=== PATIENT | male | born 1985 | race Caucasian/White ===

== ENCOUNTER 2017-11-30 01:15 | Emergency (ER) | payer SELFPAY ==
[~2017-11-30] VITALS: Ht 182.9 cm; Wt 84.0 kg
[~2017-11-30 01:15] MED LIST: CIPRO500 MG OR; NO HOME MEDS
[2017-11-30 02:29] LABS: HEMATOCRIT 47.4 % (39.0-50.0); HEMOGLOBIN 16.3 g/dl (14.0-18.0); IMMATURE GRANULOCYTES 0.6 % (0.0-5.0); MEAN CORPUSCULAR HGB 32.3 pG CALC (26.0-32.0); MEAN CORPUSCULAR HGB CONC 34.4 g/L CALC (32.0-36.0); NEUT# 11.72 thou/uL (1.82-7.42); RED BLOOD COUNT 5.04 mill/uL (4.70-6.10); RED CELL DISTRI WIDTH 11.9 % (11.5-15.5)
[2017-11-30 02:42] LABS: ALBUMIN 4.3 g/dL (3.2-5.0); ALKALINE PHOSPHATASE 57 u/l (38-126); BILIRUBIN, TOTAL 0.5 mg/dL (0.0-1.4); BUN 13 mg/dL (9-20); BUN/CREATININE RATIO 12 (12-20 (CALC)); CARBON DIOXIDE 20 mmol/l (22-30); CHLORIDE 102 mmol/l (95-108); GFR > 60 ML/MIN (>=60 (CALC)); GFR FOR AFR.AMER. > 60 ML/MIN (>=60 (CALC)); POTASSIUM 3.5 mmol/l (3.5-5.1); SGPT/ALT 168 u/l (21-72); TOTAL PROTEIN 7.6 g/dL (6.3-8.2)
[2017-11-30 02:43] LABS: ANION GAP 20 (6-22 (CALC)); SGOT/AST 154 u/l (17-59); SODIUM 138 mmol/l (137-146)
[2017-11-30] MEDS ORDERED: LORTAB 1010 MG PO (05:05)
[2017-11-30] MEDS ORDERED: AMOXICILLIN500 MG PO (05:05)
[2017-11-30 05:31] VITALS: BP 125/75
== END 2017-11-30 05:31 | disposition home or self-care (01) | DRG 913 ==
LOC: ED 01:15
PROVIDERS: Emergency Medicine
PROC: 0HQDXZZ Repair Right Lower Arm Skin, External Approach (ICD-10-PCS; principal; 2017-11-30)
DX: S51.821A Laceration with foreign body of right forearm, initial encounter (principal); S30.810A Abrasion of lower back and pelvis, initial encounter; S20.411A Abrasion of right back wall of thorax, initial encounter; Q28.2 Arteriovenous malformation of cerebral vessels; F17.210 Nicotine dependence, cigarettes, uncomplicated; V23.4XXA Motorcycle driver injured in collision with car, pick-up truck or van in traffic accident, initial encounter; F10.129 Alcohol abuse with intoxication, unspecified

== ENCOUNTER 2017-12-01 14:23 | Emergency (ER) | payer SELFPAY ==
[~2017-12-01] VITALS: Ht 182.9 cm; Wt 85.0 kg
[~2017-12-01 14:23] MED LIST changes: +AMOXICILLIN500 MG PO; +LORTAB 1010 MG PO
[2017-12-01 15:10] VITALS: BP 150/70
== END 2017-12-01 15:10 | disposition home or self-care (01) | DRG 949 ==
LOC: ED 14:23
DX: S51.811D Laceration without foreign body of right forearm, subsequent encounter (principal); S30.810D Abrasion of lower back and pelvis, subsequent encounter; S20.419D Abrasion of unspecified back wall of thorax, subsequent encounter; Q28.2 Arteriovenous malformation of cerebral vessels; F17.210 Nicotine dependence, cigarettes, uncomplicated; X58.XXXD Exposure to other specified factors, subsequent encounter